=== PATIENT | female | born 1995 | race Caucasian/White ===

== ENCOUNTER 2016-10-27 21:36 | Emergency (ER) | payer BC ==
[~2016-10-27] VITALS: Ht 160 cm; Wt 64.3 kg
[2016-10-27 21:42] VITALS: BP 117/84; PULSE 115; RESP 18; TEMP 99; O2SAT 93
--- NOTE | 2016-10-27 23:22 | PD ---
HPI Chief Complaint: Respiratory Symptoms Time Seen by Provider: 23:13 Travel History International Travel<30 days: No Contact w/Intl Traveler<30days: No Traveled to known affect area: No History of Present Illness HPI This 20-year-old female is complaining of shortness of breath. She has a history of asthma. She's been having trouble for the last couple of days. She uses a nebulizer and Advair. She has not had any fever or chills. She does have pleuritic pain in the posterior chest bilaterally. Does not smoke. She is no chance of . She has been admitted in the past for her asthma and she has been on prednisone. PFSH Past Medical History ?: Not LMP: "long time ago" pt on control pills Social History Tobacco Use: No Allergies-Medications (Allergen,Severity, Reaction): Coded Allergies: No Known Allergies (Unverified , 10/27/16) Reported Meds & Prescriptions Reported Meds & Active Scripts Active Prednisone 20 Mg Tab 20 Mg PO DIRECTED Take 60 MG daily x 4 days, then 40 MG x 4 days, then 20 MG daily x 4 days. Reported [ control ] 1 PO DAILY Advair Diskus Inh (Fluticasone-Salmeterol Inh) 250-50 Mcg/Blist Aer 1 Puff INH DAILY Rinse mouth after use. Albuterol Neb (Albuterol Sulfate) 1.25 Mg/3 Ml Neb 1.25 Mg NEB Q4HR NEB PRN Review of Systems General / Constitutional: No: Fever, Chills Eyes: No: Diploplia, Blurred Vision HENT: No: Headaches, Vertigo Cardiovascular: No: Chest Pain or Discomfort, Palpitations Respiratory: Positive: Shortness of Breath, Wheezing, No: Cough Gastrointestinal: No: Vomiting, Diarrhea Genitourinary: No: Frequency Musculoskeletal: No: Myalgias, Arthralgias Skin: No Rash Physical Exam Narrative GENERAL: Well-developed female saturation on arrival is 93% SKIN: Warm and dry. HEAD: Atraumatic. Normocephalic. EYES: Pupils equal and round. No scleral icterus. No injection or drainage. ENT: No nasal bleeding or discharge. Mucous membranes pink and moist. NECK: Trachea midline. No JVD. CARDIOVASCULAR: Regular rate and rhythm. No murmur appreciated. RESPIRATORY: No accessory muscle use. There are bilateral inspiratory and expiratory wheezes GASTROINTESTINAL: Abdomen soft, non-tender, nondistended. Hepatic and splenic margins not palpable. MUSCULOSKELETAL: No obvious deformities. No clubbing. No cyanosis. No edema. NEUROLOGICAL: Awake and alert. No obvious cranial nerve deficits. Motor grossly within normal limits. Normal speech. PSYCHIATRIC: Appropriate mood and affect; insight and judgment normal. Data Data Last Documented VS Vital Signs Date Time Temp Pulse Resp B/P Pulse Ox O2 Delivery O2 Flow Rate FiO2 10/27/16 23:18 94 Room Air 10/27/16 21:42 99.0 115 18 117/84 Orders Albuterol-Ipratropium Neb (Duoneb Neb) (10/27/16 23:30) Prednisone (Deltasone) (10/27/16 23:30) [facility] Medical Decision Making Medical Screen Exam Complete: Yes Emergency Medical Condition: Yes Medical Record Reviewed: Yes Differential Diagnosis Differential includes asthma, acute bronchospasm Narrative Course Patient has been given repeated nebs with some improvement in her wheezing. She 's been given an initial dose of prednisone by mouth and will be given a prescription for a tapering dose of prednisone Diagnosis Primary Impression: Asthma Qualified Code: J45.41 - Moderate persistent asthma with acute exacerbation Scripts Prednisone 20 Mg Tab20 Mg PO DIRECTED #24 TAB Ref 0 Take 60 MG daily x 4 days, then 40 MG x 4 days, then 20 MG daily x 4 days. Prov:Benny Badillo MD 10/27/16 Disposition: 01 DISCHARGE HOME Condition: Stable Benny Badillo MD Oct 27, 2016 23:22
[2016-10-27] MEDS ORDERED: PRED20 PO (23:23)
[2016-10-27] MEDS ORDERED: predniSONE 20 MG TAB PO ONE (23:30)
[2016-10-27] MEDS ORDERED: RESP: ALBUTEROL 2.5 MG/IPRATROPIUM 0.5 MG NEB (SCH) NEB ONE (23:30)
[2016-10-27] MEDS ORDERED: ADVA250A INH ×2 (23:37→23:56)
[2016-10-27] MEDS ORDERED: ALBU1.25 NEB (23:37)
[2016-10-27] MEDS ORDERED: birth control PO (23:38)
[2016-10-28 00:11] VITALS: BP 118/65
== END 2016-10-28 00:27 | disposition home or self-care (01) ==
LOC: PHED 21:36
DX: J45.901 Unspecified asthma with (acute) exacerbation (principal)
CPT/HCPCS: 94664; 99283; J7512